=== PATIENT | male | born 1950 | race Caucasian/White ===

== ENCOUNTER 2016-11-13 08:10 | Emergency (ER) | payer BC, OTHER ==
[2016-11-13 08:14] VITALS: BP 137/89; PULSE 86; TEMP 97.9; BMI 28.8
--- NOTE | 2016-11-13 08:48 | PDOC ---
History of Present Illness - General Chief Complaint: Injury Stated Complaint: FALL/ LT WRIST PAIN Time Seen by Provider: 11/13/16 08:35 History Source: Patient Exam Limitations: No Limitations - History of Present Illness Initial Comments: 11/13/16 08:39 5 days ago landed on left leg/knee and left wrist. States was swollen, painful, and bruised but have plans for the weekend so did not have evaluation. States has continued pain and immobility to left hand and fingers 11/13/16 14:58 Occurred: reports: last week Severity: reports: mild, moderate Pain Location: reports: none Modifying Factors: improves with: cold therapy Associated Symptoms (Fall): denies symptoms Past History - Travel Traveled outside of the country in the last 30 days: No Close contact w/someone who was outside of country & ill: No - Past Medical History Allergies/Adverse Reactions: Allergies Allergy/AdvReac Type Severity Reaction Status Date / Time warfarin sodium Allergy Hives Verified 11/13/16 08:14 [From Coumadin] Home Medications: Ambulatory Orders Amlodipine Besylate [Norvasc -] 5 mg PO DAILY 12/30/12 Aspirin [ASA -] 81 mg PO DAILY 12/30/12 Atorvastatin Ca [Lipitor] 40 mg PO HS 12/30/12 Loratadine [Claritin -] 10 mg PO PRN PRN 12/30/12 Multivitamin [Multivitamins] 1 each PO 12/30/12 Omeprazole [Prilosec (RX)] 20 mg PO DAILY 12/30/12 Quinapril HCl [Accupril -] 20 mg PO DAILY 12/30/12 Tamsulosin HCl [Flomax -] 0.4 mg PO DAILY 12/30/12 Vit B Cmplx #9/FA/Vit C/Vit E [Renatabs Tablet] 1 each PO 12/30/12 Anemia: No Asthma: No Cancer: No Cardiac Disorders: No CVA: No COPD: No CHF: No Dementia: No Diabetes: No GI Disorders: Yes (MULTIPLE COLONIC ADENOMAS; DIVERTICULOSIS) Disorders: No HTN: Yes Hypercholesterolemia: Yes Liver Disease: No Seizures: No Thyroid Disease: No - Surgical History Abdominal Surgery: No Appendectomy: No Cardiac Surgery: No Cholecystectomy: No Lung Surgery: No Neurologic Surgery: No Orthopedic Surgery: Yes (L FOOT FRACTURE REPAIR; CARPAL TUNNEL; EXTRACTION OF BULLET) - Suicide/Smoking/Psychosocial Hx Smoking History: Current every day smoker Have you smoked in the past 12 months: Yes Number of Cigarettes Smoked Daily: 5 Cigars Per Day: 1 Information on smoking cessation initiated: Yes 'Breaking Loose' booklet given: 11/13/16 Hx Alcohol Use: Yes (occasional) Drug/Substance Use Hx: No Hx Substance Use Treatment: No Trauma Specific PMHX - Complaint Specific PMHX Back Injury: No Neck Injury: No Review of Systems - Review of Systems Able to Perform ROS?: Yes Is the patient limited [place]i proficient: Yes Constitutional: Yes: See HPI. No: Symptoms Reported HEENTM: No: Symptoms Reported Respiratory: No: Symptoms reported Musculoskeletal: Yes: Symptoms Reported, See HPI, Joint Pain, Joint Swelling, Joint Stiffness All Other Systems: Reviewed and Negative *Physical Exam - Vital Signs Last Vital Signs Temp Pulse Resp BP Pulse Ox 97.9 F 86 18 137/89 98 11/13/16 08:12 11/13/16 08:12 11/13/16 08:12 11/13/16 08:12 11/13/16 08:12 - Physical Exam General Appearance: Yes: Nourished, Appropriately Dressed, Apparent Distress, Mild Distress HEENT: positive: KRYSTAL, Normal ENT Inspection, TMs Normal, Pharynx Normal Neck: positive: Supple. negative: Tender Gastrointestinal/Abdominal: positive: Soft Musculoskeletal: positive: Normal Inspection, Decreased Range of Motion Extremity: positive: Normal Capillary Refill. negative: Normal Inspection, Normal Range of Motion (limited range of motion without flexion and extension at distal left wrist with reproduce pain at snuffbox, has swelling, ecchymoses and tenderness surrounding wrist joint. Able to move fingers with good sensation but limited movement secondary to this wrist pain and swelling) Integumentary: positive: Swelling, Ecchymosis, Bruising Neurologic: positive: financial consultant II-XII NML intact, Fully Oriented, Alert, Normal Mood/ Affect, Normal Response, Motor Strength / ED Treatment Course - RADIOLOGY Radiology Studies Ordered: Category Date Time Status WRIST W/HAND-LEFT* [RAD] Stat Radiology 11/13/16 08:37 Ordered Progress Note - Progress Note Progress Note: Distal radius fracture, thumb spica splint placed stands need for follow-up with Dr. Rubio this week for casting Refuses need for Percocet. *DC/Admit/Observation/Transfer Diagnosis at time of Disposition: Distal radius fracture, left Qualifiers: Encounter type: initial encounter Fracture type: closed Fracture morphology: unspecified fracture morphology Qualified Code(s): S52.502A - Unspecified fracture of the lower end of left radius, initial encounter for closed fracture - Discharge Dispostion Disposition: HOME Condition at time of disposition: Stable Admit: No - Referrals Referrals: Grace Petit MD [Primary Care Provider] - Vinayak Rubio MD [Staff Physician] - - Patient Instructions Printed Discharge Instructions: DI for Distal Radius Fracture Additional Instructions: Rest, ice to area on and off for 15 minutes 4-6 times a day Avoid heavy lifting or exercise until pain and swelling is resolved or until further directed Keep area highly elevated to reduce swelling Use splints/Flo wrap as directed Followup with orthopedist in one to 2 days if not improving, if significantly improved may wait one week for followup with orthopedist May use ibuprofen 2-200 mg tablets every 6 hours as needed for pain - Post Discharge Activity Forms/Work/School Notes: Back to Work
== END 2016-11-13 09:47 | disposition home or self-care (01) ==
LOC: JERFT 08:10
PROC: 2W3DX1Z Immobilization of Left Lower Arm using Splint (ICD-10-PCS; principal; 2016-11-13)
DX: S52.502A Unspecified fracture of the lower end of left radius, initial encounter for closed fracture (principal); I10 Essential (primary) hypertension; E78.00 Pure hypercholesterolemia, unspecified; W18.39XA Other fall on same level, initial encounter; Y93.89 Activity, other specified; Y92.89 Other specified places as the place of occurrence of the external cause; Y99.8 Other external cause status
CPT/HCPCS: 73110-TC-LT; 73130-TC-LT; 99281-25

== ENCOUNTER → 2017-07-12 | Day surgery (SDC) | payer OTHER, BC ==
[~2017-07-12] MED LIST: PROPOFOL 20 ML ONE
[2017-07-12 10:59] VITALS: BMI 32.1
[2017-07-12 12:24] VITALS: TEMP 97.8
[2017-07-12 13:29] VITALS: BP 119/65; PULSE 60
--- NOTE | 2017-07-15 17:45 | PATH ---
Surgical Pathology Report Patient Name: [facility]. Rec. #: [id number] /Age/Gender: 1950 (Age: 66) / M Account: [id number] Location: ASU-ENDOSCOPY Taken: 07/12/2017 Received: 07/12/2017 Reported: 07/15/2017 Physicians: Oswald Pandya M.D. Specimen(s) Received A: RECTAL POLYP B: POLYP FROM DISTAL TRANSVERSE COLON C: POLYP FROM PROXIMAL TRANSVERSE COLON D: POLYP SIGMOID Clinical History Family history of colon polyps Postoperative diagnosis: Diverticulosis, colon polyps Final Diagnosis A. RECTUM, POLYPS, BIOPSY: HYPERPLASTIC POLYP(S). B. DISTAL TRANSVERSE COLON, POLYPS, BIOPSY: TUBULAR ADENOMA(S). C. PROXIMAL TRANSVERSE COLON, POLYP, BIOPSY: TUBULAR ADENOMA. D. SIGMOID COLON, POLYP, BIOPSY: COLONIC MUCOSA WITH SUPERFICIAL HYPERPLASTIC FEATURES. Electronically Signed Kadi Amaro M.D. Gross Description A. Received in formalin, labeled "biopsy rectal polyps" are 7 hadley, irregular portions of soft tissue ranging from 0.1-0.7 cm. in greatest dimension. The specimens are submitted in toto in one cassette. B. Received in formalin, labeled "polyps distal transverse" is a hadley, irregular portion of soft tissue measuring 0.3 cm. in greatest dimension. The specimen is submitted in toto in one cassette. C. Received in formalin, labeled "polyp proximal transverse colon" are 2 hadley, irregular portions of soft tissue averaging 0.3 cm. in greatest dimension. The specimens are submitted in toto in one cassette. D. Received in formalin, labeled "biopsy polyp sigmoid colon" are 3 hadley, irregular portions of soft tissue ranging from 0.1-0.2 cm. in greatest dimension. The specimens are submitted in toto in one cassette. DL07/12/2017 saudi07/12/2017
== END | disposition home or self-care (01) ==
LOC: JASU-ENDO 09:17
PROVIDERS: ATTEND Internal Medicine Gastroenterology
PROC: 0DBP8ZX Excision of Rectum, Via Natural or Artificial Opening Endoscopic, Diagnostic (ICD-10-PCS; 2017-07-12)
PROC: 0DBL8ZX Excision of Transverse Colon, Via Natural or Artificial Opening Endoscopic, Diagnostic (ICD-10-PCS; principal; 2017-07-12 11:30)
DX: Z12.11 Encounter for screening for malignant neoplasm of colon (principal); Z86.010 Personal history of colon polyps; Z80.0 Family history of malignant neoplasm of digestive organs; K62.1 Rectal polyp; K64.8 Other hemorrhoids; K63.5 Polyp of colon; K57.30 Diverticulosis of large intestine without perforation or abscess without bleeding
CPT/HCPCS: 88305-TC

== ENCOUNTER 2019-04-01 08:08 | Day surgery (SDC) | payer OTHER, BC ==
[2019-03-31 09:30] VITALS: BMI 30.7
[2019-04-01 08:53] LABS: BASO % 0.9 % (0-2.0); EOS % 2.2 % (0-4.5); HEMATOCRIT 47.5 % (35.4-49); HEMOGLOBIN 16.7 GM/dL (11.7-16.9); LYMPH % 28.5 % (8-40); MCHC 35.3 g/dl (32.0-35.9); MEAN CELL VOLUME 90.8 fl (80-96); MEAN PLT VOLUME 9.7 fl (7.5-11.1); MONO % 7.7 % (3.8-10.2); NEUT % 60.7 % (42.8-82.8); PLATELET COUNT 204 K/MM3 (134-434); RBC 5.23 M/mm3 (4.00-5.60); RDW 13.8 % (11.9-15.9); WHITE BLOOD COUNT 9.3 K/mm3 (4.0-10.0)
[2019-04-01 09:19] LABS: INR 0.98 (0.83-1.09); PROTHROMBIN TIME (PATIENT) 11.6 SEC (9.7-13.0)
[2019-04-01 13:43] VITALS: BP 147/73; PULSE 65; TEMP 97.7
== END 2019-04-01 14:00 | disposition home or self-care (01) ==
LOC: JRADIR 08:08
PROVIDERS: ATTEND Neurological Surgery
PROC: B01BYZZ Fluoroscopy of Spinal Cord using Other Contrast (ICD-10-PCS; principal; 2019-04-01)
DX: M54.5 Low back pain (principal)
CPT/HCPCS: 36415; 62305; 72125-TC; 72128-TC; 72131-TC; 72270-TC-FY; 85025; 85610

== ENCOUNTER 2022-03-06 11:01 | Inpatient (IN) | payer OTHER, BC ==
[2022-03-06] MEDS ORDERED: SODIUM CHLORIDE 0.9% 500 ML INFUS.BAG IV ONE (12:56)
[2022-03-06 13:07] LABS: BASO % 0.2 % (0-2.0); HEMATOCRIT 40.3 % (35.4-49); HEMOGLOBIN 13.2 GM/dL (11.7-16.9); LYMPH % 8.8 % (8-40); MCH 30.2 pg (25.7-33.7); MCHC 32.8 g/dl (32.0-35.9); MEAN CELL VOLUME 92.2 fl (80-96); MONO % 3.9 % (3.8-10.2); NEUT % 87.1 % (42.8-82.8); PLATELET COUNT 219 10^3/uL (134-434); RBC 4.37 M/mm3 (4.00-5.60); RDW 15.5 % (11.9-15.9); WHITE BLOOD COUNT 19.2 K/mm3 (4.0-10.0)
[2022-03-06 13:09] LABS: EPI CELLS 14 /uL (0-25.1); HYALINE CASTS 4 /uL (0-3.1); PH,URINE 6.5 (5.0-8.0); URINE APPEARANCE CLEAR; URINE BACTERIA 7 /uL (0-1359); URINE BILIRUBIN NEGATIVE (NEGATIVE); URINE COLOR YELLOW; URINE GLUCOSE (UA) NEGATIVE (NEGATIVE); URINE KETONE 3+ (NEGATIVE); URINE LEUK ESTERASE NEGATIVE (NEGATIVE); URINE NITRITE NEGATIVE (NEGATIVE); URINE PROTEIN 1+ (NEGATIVE); URINE RBC 20 /uL (0-23.9); URINE WBC 17 /uL (0-25.8)
[2022-03-06 13:48] LABS: CHLORIDE 101 mmol/L (98-107); SODIUM 142 mmol/L (136-145)
[2022-03-06 13:51] LABS: ALBUMIN 3.9 g/dl (3.4-5.0); ANION GAP 24 MMOL/L (8-16); CALCIUM 7.3 mg/dL (8.5-10.1); CO2 16 mmol/L (21-32); GLUCOSE,RANDOM 199 mg/dL (74-106); LACTIC ACID 8.6 mmol/L (0.4-2.0)
[2022-03-06 13:54] LABS: CREATININE 1.2 mg/dL (0.55-1.3); SGPT/ALT 23 U/L (13-61)
[2022-03-06 13:55] LABS: SGOT/AST 25 U/L (15-37)
[2022-03-06 13:56] LABS: TOT PROT 7.2 g/dl (6.4-8.2)
[2022-03-06 13:57] LABS: ALK PHOS 70 U/L (45-117)
[2022-03-06] MEDS ORDERED: diazePAM CARPU-JECT 10 MG/2 ML DISP.SYRIN IVPUSH ONE (14:26)
[2022-03-06] MEDS ORDERED: diazePAM CARPU-JECT 10 MG/2 ML DISP.SYRIN ONE (14:33)
[2022-03-06] MEDS ORDERED: SODIUM CHLORIDE 1,000 ML IV STA (14:42)
[2022-03-06 16:00] LABS: VENOUS BASE EXCESS -2.2 mmol/L (-2-2); VENOUS O2 SATURATION 25.3 % (70-80); VENOUS PCO2 36.3 mmHg (38-52); VENOUS PH 7.402 (7.310-7.410)
[2022-03-06 16:30] LABS: MAGNESIUM < 0.3 mg/dL (1.8-2.4)
[2022-03-06] MEDS ORDERED: MAGNESIUM SULF 50% (8.12 MEQ/2 ML-1 GM VIAL) IVPB ONE ×2 (16:40→17:38)
[2022-03-06] MEDS ORDERED: MAGNESIUM SULFATE IN WATER 2 GM/50 ML IVPB IVPB ONE ×2 (16:43→18:08)
[2022-03-06] MEDS ORDERED: KCL 10 MEQ IVPB 10 MEQ/100 ML INFUS.BAG IVPB ONE ×4 (18:08→22:59)
[2022-03-06] MEDS: KCL 10 MEQ IVPB 10 MEQ/100 ML INFUS.BAG IVPB SCH ×4 (18:18→22:30)
[2022-03-06 18:24] LABS: CHLORIDE 105 mmol/L (98-107); SODIUM 142 mmol/L (136-145)
[2022-03-06 18:26] LABS: ALBUMIN 3.5 g/dl (3.4-5.0)
[2022-03-06 18:27] LABS: ANION GAP 13 MMOL/L (8-16); BLOOD UREA NITROGEN 10.8 mg/dL (7-18); CO2 23 mmol/L (21-32); GLUCOSE,RANDOM 110 mg/dL (74-106)
[2022-03-06 18:30] LABS: CREATININE 0.8 mg/dL (0.55-1.3); PHOSPHOROUS 3.5 mg/dL (2.5-4.9); SGOT/AST 29 U/L (15-37); SGPT/ALT 16 U/L (13-61)
[2022-03-06 18:31] LABS: BILIRUBIN,TOTAL 0.8 mg/dL (0.2-1); TOT PROT 6.3 g/dl (6.4-8.2)
[2022-03-06 18:33] LABS: ALK PHOS 65 U/L (45-117); CALCIUM 6.6 mg/dL (8.5-10.1)
[2022-03-06] MEDS ORDERED: CALCIUM GLUCONATE 10% - 1,000 MG/10 ML VIAL IVPB ONE ×2 (18:43→21:40)
[2022-03-06] MEDS ORDERED: CALCIUM GLUC IN NACL, ISO-OSM 2 GM/100 ML BAG IVPB ONE ×2 (18:49→21:52)
[2022-03-06] MEDS ORDERED: ASPIRIN 325 MG TABLET PO ONE (19:19)
[2022-03-06] MEDS ORDERED: ASPIRIN 325 MG TABLET ONE (19:32)
[2022-03-06 19:33] LABS: CHLORIDE 100 mmol/L (98-107); SODIUM 141 mmol/L (136-145)
[2022-03-06 19:36] LABS: ALBUMIN 3.5 g/dl (3.4-5.0); ANION GAP 19 MMOL/L (8-16); BLOOD UREA NITROGEN 9.7 mg/dL (7-18); CO2 22 mmol/L (21-32); GLUCOSE,RANDOM 120 mg/dL (74-106); MAGNESIUM 2.2 mg/dL (1.8-2.4)
[2022-03-06 19:39] LABS: CREATININE 0.7 mg/dL (0.55-1.3); PHOSPHOROUS 4.1 mg/dL (2.5-4.9); SGOT/AST 36 U/L (15-37)
[2022-03-06 19:41] LABS: BILIRUBIN,TOTAL 0.9 mg/dL (0.2-1); TOT PROT 6.6 g/dl (6.4-8.2)
[2022-03-06 19:42] LABS: ALK PHOS 66 U/L (45-117)
[2022-03-06 19:47] LABS: SGPT/ALT 27 U/L (13-61)
[2022-03-06 19:48] LABS: CALCIUM 6.9 mg/dL (8.5-10.1)
[2022-03-06] MEDS ORDERED: HEPARIN NA (PORCINE) 5,000 UNITS/ML 1ML VIAL IVPUSH PRN ×2 (21:06)
[2022-03-06] MEDS ORDERED: POTASSIUM CHLORIDE ORAL LIQUID 20 MEQ/15 ML PO ONE (21:07)
[2022-03-06] MEDS ORDERED: CALCIUM GLUBIONATE 1.8 GM/5 ML SOLUTION PO ONE (21:09)
[2022-03-06 21:20] LABS: INR 1.18 (0.83-1.09); PROTHROMBIN TIME (PATIENT) 13.6 SEC (9.7-13.0)
[2022-03-06] MEDS ORDERED: POTASSIUM CHLORIDE ORAL LIQUID 20 MEQ/15 ML ONE (21:22)
[2022-03-06 21:23] LABS: ACTIVATED PTT 25.1 SECONDS (25.2-36.5)
[2022-03-06] MEDS ORDERED: THIAMINE HCL 200 MG/2 ML VIAL IM ONE (21:23)
[2022-03-06] MEDS ORDERED: THIAMINE HCL 200 MG/2 ML VIAL ONE (21:40)
[2022-03-06] MEDS ORDERED: HEPARIN NA (PORCINE) 5,000 UNITS/ML 1ML VIAL ONE (21:41)
[2022-03-06] MEDS ORDERED: HEPARIN INFUSION - 25,000 UNITS/500 ML INFUS.BAG IVPB ONE (21:41)
[2022-03-06] MEDS ORDERED: CALCIUM GLUCONATE 10% - 1,000 MG/10 ML VIAL ONE (21:50)
[2022-03-06] MEDS ORDERED: CALCIUM CHLORIDE 1 GM/10 ML *DISP.SYRIN ONE (21:50)
[2022-03-06] MEDS: HEPARIN - 25,000 UNIT in SODIUM CHLORIDE 495 ML IV SCH (23:00)
[2022-03-07] MEDS: KCL 10 MEQ IVPB 10 MEQ/100 ML INFUS.BAG IVPB SCH ×2 (00:30→03:27)
[2022-03-07] MEDS ORDERED: KCL 10 MEQ IVPB 10 MEQ/100 ML INFUS.BAG IVPB ONE (01:05)
[2022-03-07 02:34] VITALS: BMI 24.4
[2022-03-07] MEDS ORDERED: KCL 10 MEQ IVPB 10 MEQ/100 ML INFUS.BAG IVPB SCH (03:30)
[2022-03-07] MEDS: CARBIDOPA/LEVODOPA 25/100 TABLET (FP) PO SCH ×4 (06:55→21:31)
[2022-03-07 07:32] LABS: BASO % 0.2 % (0-2.0); EOS % 0.1 % (0-4.5); HEMOGLOBIN 12.3 GM/dL (11.7-16.9); LYMPH % 11.7 % (8-40); MCH 30.6 pg (25.7-33.7); MCHC 33.3 g/dl (32.0-35.9); MEAN CELL VOLUME 91.7 fl (80-96); MEAN PLT VOLUME 10.8 fl (7.5-11.1); MONO % 7.5 % (3.8-10.2); NEUT % 80.5 % (42.8-82.8); PLATELET COUNT 205 10^3/uL (134-434); RBC 4.04 M/mm3 (4.00-5.60); RDW 15.2 % (11.9-15.9); WHITE BLOOD COUNT 17.1 K/mm3 (4.0-10.0)
[2022-03-07 07:38] LABS: CHLORIDE 105 mmol/L (98-107); SODIUM 141 mmol/L (136-145)
[2022-03-07 07:40] LABS: CALCIUM 7.4 mg/dL (8.5-10.1)
[2022-03-07 07:41] LABS: ANION GAP 17 MMOL/L (8-16); BLOOD UREA NITROGEN 7.8 mg/dL (7-18); CO2 19 mmol/L (21-32); GLUCOSE,RANDOM 100 mg/dL (74-106); MAGNESIUM 1.4 mg/dL (1.8-2.4)
[2022-03-07 07:44] LABS: CREATININE 0.6 mg/dL (0.55-1.3); PHOSPHOROUS 3.1 mg/dL (2.5-4.9)
[2022-03-07] MEDS: TAMSULOSIN HCL 0.4 MG CAP PO SCH (07:52)
[2022-03-07] MEDS ORDERED: QUINAPRIL HCL 20 MG TABLET PO SCH (10:00)
[2022-03-07] MEDS ORDERED: PRAMIPEXOLE DIHYDROCHLORIDE 0.25 MG TABLET PO SCH (10:00)
[2022-03-07] MEDS ORDERED: LISINOPRIL 20 MG TABLET PO SCH (10:00)
[2022-03-07] MEDS ORDERED: ENOXAPARIN NA (PORCINE) 40 MG/0.4 ML DISP.SYRIN SQ SCH (10:00)
[2022-03-07] MEDS ORDERED: MAGNESIUM SULFATE IN WATER 2 GM/50 ML IVPB IVPB ONE (10:00)
[2022-03-07] MEDS: amLODIPine BESYLATE 10 MG TABLET (FP) PO SCH ×2 (10:40→10:46)
[2022-03-07] MEDS: SOLIFENACIN SUCCINATE 5 MG TAB PO SCH (10:40)
[2022-03-07] MEDS: CALCITRIOL 0.25 MCG CAPSULE (FP) PO SCH (10:41)
[2022-03-07] MEDS ORDERED: chlordiazePOXIDE HCL 25 MG CAPSULE PO PRN (16:36)
[2022-03-07] MEDS: HEPARIN - 25,000 UNIT in SODIUM CHLORIDE 495 ML IV SCH (22:00)
[2022-03-07] MEDS ORDERED: ATORVASTATIN CA 40 MG TABLET (FP) PO SCH (22:00)
[2022-03-08] MEDS: HEPARIN - 25,000 UNIT in SODIUM CHLORIDE 495 ML IV SCH (01:53)
[2022-03-08] MEDS: CARBIDOPA/LEVODOPA 25/100 TABLET (FP) PO SCH ×2 (05:28→13:50)
[2022-03-08 06:00] VITALS: RESP 18
[2022-03-08] MEDS ORDERED: ATORVASTATIN CA 80 MG TABLET (FP) PO SCH (08:06)
[2022-03-08] MEDS: TAMSULOSIN HCL 0.4 MG CAP PO SCH (08:26)
[2022-03-08] MEDS: CALCITRIOL 0.25 MCG CAPSULE (FP) PO SCH (09:45)
[2022-03-08] MEDS: SOLIFENACIN SUCCINATE 5 MG TAB PO SCH (09:45)
[2022-03-08 09:50] LABS: BASO % 0.6 % (0-2.0); EOS % 0.6 % (0-4.5); HEMATOCRIT 37.2 % (35.4-49); HEMOGLOBIN 12.4 GM/dL (11.7-16.9); LYMPH % 15.6 % (8-40); MCH 30.6 pg (25.7-33.7); MCHC 33.3 g/dl (32.0-35.9); MEAN CELL VOLUME 91.8 fl (80-96); MEAN PLT VOLUME 10.9 fl (7.5-11.1); MONO % 6.4 % (3.8-10.2); NEUT % 76.8 % (42.8-82.8); PLATELET COUNT 194 10^3/uL (134-434); RBC 4.05 M/mm3 (4.00-5.60); RDW 15.2 % (11.9-15.9)
[2022-03-08] MEDS ORDERED: PRAMIPEXOLE DIHYDROCHLORIDE 0.25 MG TABLET PO SCH (10:00)
[2022-03-08 10:19] LABS: ALBUMIN 3.3 g/dl (3.4-5.0); BLOOD UREA NITROGEN 14.2 mg/dL (7-18); CALCIUM 7.8 mg/dL (8.5-10.1)
[2022-03-08 10:20] LABS: N-TERMINAL BNP 5989.9 pg/ml (5-125); TOT PROT 6.2 g/dl (6.4-8.2)
[2022-03-08 10:22] LABS: PHOSPHOROUS 2.4 mg/dL (2.5-4.9)
[2022-03-08 10:23] LABS: CREATININE 0.8 mg/dL (0.55-1.3)
[2022-03-08 10:29] LABS: BILIRUBIN,TOTAL 0.9 mg/dL (0.2-1)
[2022-03-08] MEDS ORDERED: POTASSIUM CHLORIDE ORAL LIQUID 20 MEQ/15 ML PO ONE (12:30)
[2022-03-08] MEDS ORDERED: ASPIRIN 81 MG CHEWABLE TABLETS PO SCH (12:30)
[2022-03-08 15:08] VITALS: PULSE 69
[2022-03-08 18:23] VITALS: BP 119/94; TEMP 98.5
== END 2022-03-08 20:50 | disposition short-term general hospital (02) | DRG 281 ==
LOC: JER 11:01 → JERBED 18:10 → J4W 03-07 02:04
PROVIDERS: ADMIT Internal Medicine; ATTEND Internal Medicine
DX: I21.4 Non-ST elevation (NSTEMI) myocardial infarction (principal); F10.239 Alcohol dependence with withdrawal, unspecified; E78.5 Hyperlipidemia, unspecified; I10 Essential (primary) hypertension; N40.0 Benign prostatic hyperplasia without lower urinary tract symptoms; K21.9 Gastro-esophageal reflux disease without esophagitis; G20 Parkinson's disease; H91.10 Presbycusis, unspecified ear; I25.10 Atherosclerotic heart disease of native coronary artery without angina pectoris; J43.9 Emphysema, unspecified; E83.42 Hypomagnesemia; E04.1 Nontoxic single thyroid nodule; R00.0 Tachycardia, unspecified; E83.51 Hypocalcemia; E87.6 Hypokalemia; R77.8 Other specified abnormalities of plasma proteins; D72.829 Elevated white blood cell count, unspecified
CPT/HCPCS: 0241U-QW; 36415; 70450-TC; 71046-TC-FY; 71260-TC; 72125-TC; 74177-TC; 80048; 80053; 80061; 80307; 81003; 82803; 82962; 83605; 83735; 83880; 84100; 84439; 84443; 84484; 85025; 85610; 85730; 87086; 93005; 93010; 93306-TC; 99291; 99292; C9803-CS; J1644; Q9967; U0003; U0005

== ENCOUNTER 2023-05-28 04:16 | Day surgery (SDC) | payer OTHER, BC ==
[2023-05-22 12:48] VITALS: BMI 36.3
[2023-05-28 08:49] VITALS: TEMP 98
[2023-05-28 09:24] VITALS: BP 128/53; PULSE 72; RESP 14
== END 2023-05-28 09:47 | disposition home or self-care (01) ==
LOC: JASU-ENDO 04:16
PROVIDERS: ATTEND Internal Medicine Gastroenterology
PROC: 0DBL8ZX Excision of Transverse Colon, Via Natural or Artificial Opening Endoscopic, Diagnostic (ICD-10-PCS; 2023-05-28)
PROC: 0DBN8ZX Excision of Sigmoid Colon, Via Natural or Artificial Opening Endoscopic, Diagnostic (ICD-10-PCS; 2023-05-28)
PROC: 0DBP8ZX Excision of Rectum, Via Natural or Artificial Opening Endoscopic, Diagnostic (ICD-10-PCS; principal; 2023-05-28 08:00)
DX: Z12.11 Encounter for screening for malignant neoplasm of colon (principal); D12.8 Benign neoplasm of rectum; D12.5 Benign neoplasm of sigmoid colon; D12.3 Benign neoplasm of transverse colon; K57.30 Diverticulosis of large intestine without perforation or abscess without bleeding; Z86.010 Personal history of colon polyps
CPT/HCPCS: 88305-TC